=== PATIENT | male | born 1970 | race Caucasian/White ===

== ENCOUNTER 2017-08-24 01:52 | Emergency (ER) | payer BC ==
[~2017-08-24] VITALS: Ht 180.3 cm; Wt 97.5 kg
[~2017-08-24 01:52] MED LIST: FAMO20TA8 PO; HYDR-4100 PO; OXYC20TA55 PO; SUCR1TAB PO
[2017-08-24 01:54] VITALS: BP_SYST 144
[2017-08-24 03:53] VITALS: BP_SYST 137
== END 2017-08-24 03:53 | disposition home or self-care (01) ==
LOC: SED 01:52
DX: J40 Bronchitis, not specified as acute or chronic (principal); K21.9 Gastro-esophageal reflux disease without esophagitis; Z88.2 Allergy status to sulfonamides; Z88.6 Allergy status to analgesic agent; Z98.890 Other specified postprocedural states
CPT/HCPCS: 71010; 99283

== ENCOUNTER 2019-01-09 01:52 | Emergency (ER) | payer BC ==
[~2019-01-09] VITALS: Ht 180.3 cm; Wt 106.6 kg
[2019-01-09 02:10] VITALS: BP_SYST 132
[2019-01-09] MEDS ORDERED: KETOROLAC TROMETHAMINE 60 MG/2 ML VIAL IM ONE (02:45)
[2019-01-09 03:30] VITALS: BP_SYST 132
== END 2019-01-09 03:30 | disposition home or self-care (01) ==
LOC: SED 01:52
DX: M54.40 Lumbago with sciatica, unspecified side (principal); K21.9 Gastro-esophageal reflux disease without esophagitis; Z88.1 Allergy status to other antibiotic agents; Z88.2 Allergy status to sulfonamides; Z88.6 Allergy status to analgesic agent; Z79.899 Other long term (current) drug therapy
CPT/HCPCS: 99281; J1885

== ENCOUNTER 2019-06-03 19:31 | Emergency (ER) | payer BC ==
[~2019-06-03] VITALS: Ht 180.3 cm; Wt 107.5 kg
[2019-06-03 19:54] VITALS: BP_SYST 127
[2019-06-03] MEDS ORDERED: CEPHALEXIN 500 MG CAPSULE PO ONE (20:15)
[2019-06-03 21:40] VITALS: BP_SYST 158
== END 2019-06-03 21:40 | disposition home or self-care (01) ==
LOC: SED 19:31
DX: S87.81XA Crushing injury of right lower leg, initial encounter (principal); R03.0 Elevated blood-pressure reading, without diagnosis of hypertension; K21.9 Gastro-esophageal reflux disease without esophagitis; Z88.1 Allergy status to other antibiotic agents; Z88.2 Allergy status to sulfonamides; Z88.6 Allergy status to analgesic agent; Z79.899 Other long term (current) drug therapy; W20.8XXA Other cause of strike by thrown, projected or falling object, initial encounter; Y93.89 Activity, other specified; Y92.89 Other specified places as the place of occurrence of the external cause; Y99.8 Other external cause status
CPT/HCPCS: 73590-TC; 87070-TC; 93971; 99284

== ENCOUNTER 2020-04-09 19:24 | Emergency (ER) | payer BC ==
[~2020-04-09] VITALS: Ht 180.3 cm; Wt 106.6 kg
[2020-04-09 19:59] VITALS: BP_SYST 132
--- NOTE | 2020-04-09 20:02 | NUR ---
Triaged in tent outside. Pt is wearing a mask. MD notified. VSS, no acute distress
--- NOTE | 2020-04-09 20:48 | NUR ---
Patient complains of body aches, fever, chills, cough, loss of taste and smell since Monday. Pt states he works at [employer] where "alot of his co workers had the land virus." Pt states he had broke his fever today. pt complains of 10/10 headache. NO other injuries/complaints per patient or noted.
[2020-04-09 20:50] VITALS: BP_SYST 147
--- NOTE | 2020-04-09 20:50 | NUR ---
Patient requested to walk in place x 1 minute with pulse oximetry monitoring. SpO2 at 98-100% while walking in place with no distress noted. Patient tolerated well. RACQUEL Torres and Dr. Garrett made aware. Addendum: 04/09/20 at 2108 by [facility] Per Dr. Garrett's request, patient was asked to walk in place x 1 minute with pulse oximetry monitoring. SpO2 at 98-100% while walking in place with no distress noted. Patient tolerated well. RACQUEL Torres and Dr. Garrett made aware.
[2020-04-09] MEDS ORDERED: MORPHINE 2 MG/ML INJ. SYRINGE IM ONE ×2 (21:00→21:15)
--- NOTE | 2020-04-09 21:19 | NUR ---
ER Dr. Garrett at bedside examining patient.
--- NOTE | 2020-04-09 21:45 | NUR ---
Went to re-assess patient. Patient sourav @ [id number]
== END 2020-04-09 21:45 | disposition left against medical advice (07) ==
LOC: EEVIPCON 19:24 → SED 19:24
DX: B34.9 Viral infection, unspecified (principal); K21.9 Gastro-esophageal reflux disease without esophagitis; Z20.828 Contact with and (suspected) exposure to other viral communicable diseases; Z79.899 Other long term (current) drug therapy; Z88.1 Allergy status to other antibiotic agents; Z88.2 Allergy status to sulfonamides
CPT/HCPCS: 96372; 99283; J2270; U0003

== ENCOUNTER 2020-08-19 21:14 | Emergency (ER) | payer BC ==
[~2020-08-19] VITALS: Ht 177.8 cm; Wt 99.8 kg
[2020-08-19 21:25] VITALS: BP_SYST 132
[2020-08-19] MEDS ORDERED: NACL 0.9% 1,500 ML IV ONE (22:00)
[2020-08-19] MEDS ORDERED: ONDANSETRON HCL 4 MG/2 ML VIAL IVP ONE (22:00)
[2020-08-19] MEDS ORDERED: LEVOFLOXACIN 500 MG/D5W 100 ML IV ONE (22:00)
[2020-08-19] MEDS ORDERED: KETOROLAC TROMETHAMINE 30 MG VIAL IVP ONE (22:00)
[2020-08-19 22:20] LABS: BASOPHILS % (AUTO) 0.2 % (0.0-2.0); EOSINOPHILS % (AUTO) 0.1 % (0.0-4.0); HEMATOCRIT 45.1 % (36-54); HEMOGLOBIN 15.4 g/dL (14.0-18.0); LYMPHOCYTES # (AUTO) 0.8 K/uL (1.0-5.5); LYMPHOCYTES % (AUTO) 7.9 % (20.5-51.5); MEAN CORPUSCULAR HEMOGLOBIN 31 pg (27-31); MEAN CORPUSCULAR HGB CONC 34 % (32-36); MEAN CORPUSCULAR VOLUME 90 fL (79.0-98.0); MONOCYTES # (AUTO) 0.4 K/uL (0.0-1.0); MONOCYTES % (AUTO) 3.7 % (1.7-9.3); NEUTROPHILS # (AUTO) 8.9 K/uL (1.8-7.7); NEUTROPHILS % (AUTO) 88.1 % (40.0-70.0); PLATELET COUNT (AUTO) 273 K/uL (130-430); RED BLOOD CELL COUNT(AUTO) 4.99 MIL/uL (4.2-6.2); RED CELL DISTRIBUTION WIDTH 12.7 % (9.0-15.0); WHITE BLOOD COUNT (AUTO) 10.1 K/uL (4.8-10.8)
[2020-08-19 22:22] LABS: CALCIUM 8.5 mg/dL (8.4-11.0); CREATININE 0.94 mg/dL (0.55-1.30); POTASSIUM 3.6 mmol/L (3.5-5.1)
[2020-08-19 22:27] LABS: ALBUMIN 4.1 g/dL (3.4-4.8); TOTAL BILIRUBIN 0.5 mg/dL (0.0-1.0)
[2020-08-19] MEDS ORDERED: LORazepam 2 MG/ML VIAL IVP ONE (22:45)
[2020-08-19 23:06] LABS: BILIRUBIN,URINE NEGATIVE (NEGATIVE); BLOOD, URINE 2+ (NEGATIVE); CLARITY/URINE CLOUDY (CLEAR); COLOR,URINE YELLOW (YELLOW); GLUCOSE,URINE NEGATIVE (NEGATIVE); KETONES,URINE NEGATIVE (NEGATIVE); LEUKOCYTE ESTERASE ,URINE NEGATIVE (NEGATIVE); NITRITE, URINE NEGATIVE (NEGATIVE); PH,URINE 8.5 (5.0-8.0); PROTEIN URINE NEGATIVE (NEGATIVE); UROBILINOGEN,URINE 0.2 (0.2-1.0)
[2020-08-19 23:12] LABS: BACTERIA,URINE FEW /HPF (None Seen); URINE AMORPHOUS PHOSPHATES 2+ /HPF (None Seen); WBC,URINE 0-3 /HPF (0-3)
[2020-08-19] MEDS ORDERED: DIPHENHYDRAMINE INJ 50 MG/ML VIAL IVP ONE (23:15)
[2020-08-19] MEDS ORDERED: HALOPERIDOL LACTATE 5 MG/ML VIAL IVP ONE (23:15)
[2020-08-19 23:17] LABS: BARBITURATE, URINE NEGATIVE (NEG <=200); CANNABINOID, URINE POSITIVE (NEG <=50); METHAMPHETAMINES SCREEN,URINE NEGATIVE (NEG <=500); URINE AMPHETAMINE NEGATIVE (NEG <=500)
[2020-08-19 23:18] LABS: BENZODIAZEPINE, URINE NEGATIVE (NEG <=150); COCAINE, URINE NEGATIVE (NEG <=150); OPIATE, URINE NEGATIVE (NEG <=100); PHENCYCLIDINE SCREEN,URINE NEGATIVE (NEG <=25); UR TRICYCLIC ANTIDEPRESSANTS NEGATIVE (NEG <=300); URINE METHADONE NEGATIVE (NEG <=200); URINE OXYCODONE SCREEN NEGATIVE (NEG <=100); URINE PROPOXYPHENE SCREEN NEGATIVE (NEG <=300)
[2020-08-20 01:01] VITALS: BP_SYST 118
== END 2020-08-20 01:01 | disposition home or self-care (01) ==
LOC: SED 21:14
DX: R11.10 Vomiting, unspecified (principal); K21.9 Gastro-esophageal reflux disease without esophagitis; Z88.1 Allergy status to other antibiotic agents; Z88.2 Allergy status to sulfonamides; Z88.6 Allergy status to analgesic agent
CPT/HCPCS: 36415; 74176; 80053; 80307; 81000; 83605; 83690; 85025; 87040; 96365; 96375; 99284; J1200; J1630; J1885; J1956; J2060; J2405; J7030; J7040